=== PATIENT | female | born 1970 | race Caucasian/White ===

== ENCOUNTER 2021-09-11 11:21 | Outpatient (CLI) | payer BC | END 2021-09-11 11:22 | disposition home or self-care (01) | LOC: CSHMRI 11:21 | PROVIDERS: ATTEND Family Medicine | DX: M54.16 Radiculopathy, lumbar region (principal); M48.061 Spinal stenosis, lumbar region without neurogenic claudication; M47.816 Spondylosis without myelopathy or radiculopathy, lumbar region | CPT/HCPCS: 72148 ==